=== PATIENT | male | born 1990 | race Caucasian/White ===

== ENCOUNTER 2016-11-06 21:04 | Emergency (ER) | payer BC, OTHER ==
[~2016-11-06] VITALS: Ht 193 cm; Wt 79.4 kg
[2016-11-06] MEDS ORDERED: LIDOCAINE 1% INJ 20 ML (XYLOCAINE) VIAL ONE (21:12)
[2016-11-06] MEDS ORDERED: LIDOCAINE 2% 20 ML (XYLOCAINE) VIAL INJ ONE (21:15)
[2016-11-06] MEDS ORDERED: ETOMIDATE IV SOLN 20 MG/10 ML VIAL IV ONE (21:15)
[2016-11-06] MEDS ORDERED: fentaNYL INJECTION 100 MCG/2 ML AMP ONE (21:17)
--- NOTE | 2016-11-06 21:34 | ED Lower Extremity ---
General Chief Complaint: Lower Extremity Stated Complaint: R ANKLE PAIN Nursing Triage Note: patient was playing basketball and went to block a shot and landed on his R ankle. Nursing Sepsis Screen: No Definite Risk Source: patient Exam Limitations: no limitations History of Present Illness Time seen by provider: 21:31 Initial Comments To ER per [facility] from the [facility] with reports of an ankle dislocation. Patient jumps to block a shot and landed wrong. Onset: just prior to arrival Severity: moderate Pain/Injury Location: right ankle Method of Injury: sports injury Modifying Factors: Worse With Movement Allergies and Home Medications Allergies Coded Allergies: No Known Drug Allergies (Unverified , 11/06/16) Home Medications Hydrocodone/Acetaminophen 1 Each Tablet, 1 EACH PO Q4H PRN for PAIN, #30 Prescribed by: GO GIRALDO on 11/06/16 2688 Constitutional: see HPI EENTM: see HPI Respiratory: no symptoms reported Cardiovascular: no symptoms reported Genitourinary: no symptoms reported Musculoskeletal: see HPI Skin: no symptoms reported Past Cdacbna-Wcfvef-Vytqrh Hx Patient Social History Alcohol Use: Regular Use Recreational Drug Use: No Smoking Status: Never a Smoker Recent Foreign Travel: No Contact w/Someone Who Travel: No Recent Infectious Disease Expo: No Recent Hopitalizations: No Surgeries HX Surgeries: No Respiratory Hx Respiratory Disorders: No Cardiovascular Hx Cardiac Disorders: No Neurological Hx Neurological Disorders: No Reproductive System Hx Reproductive Disorders: No Sexually Transmitted Disease: No Genitourinary Hx Genitourinary Disorders: No Gastrointestinal Hx Gastrointestinal Disorders: No Musculoskeletal Hx Musculoskeletal Disorders: No Endocrine Hx Endocrine Disorders: No HEENT HX ENT Disorders: No Cancer Hx Cancer: No Psychosocial Hx Psychiatric Problems: No Integumentary HX Skin/Integumentary Disorder: No Family Medical History Significant Family History: No Pertinent Family Hx Family Medial History: Hypertension 19 FATHER Physical Exam Vital Signs Vital Sign - Last 12Hours 11/06/16 21:16 Temp 98.4 Pulse 94 Resp 12 B/P (MAP) 164/100 Pulse Ox 100 O2 Delivery Room Air Capillary Refill : Less Than 3 Seconds General Appearance: WD/WN, no apparent distress HEENT: PERRL/EOMI, normal ENT inspection Neck: non-tender, full range of motion Respiratory: no respiratory distress, no accessory muscle use Hips: bilateral hip non-tender, bilateral hip normal inspection, bilateral hip normal range of motion Legs: bilateral leg non-tender, bilateral leg normal inspection, bilateral leg normal range of motion Knees: bilateral knee non-tender, bilateral knee normal inspection, bilateral knee normal range of motion Ankles: left ankle pain, left ankle soft tissue tenderness, left ankle other ( all normal. Initially the left foot was completely angled at nearly 90 medially. We were unable to palpate a posterior tibial pulse however he did have good capillary refill of his toes and SPO2 monitoring showed 99 percent when attached to the toe with good waveform. The ankle joint was anesthetized with 20 mL of 1 percent lidocaine without epinephrine. Simple traction was then applied and the ankle was easily reduced.) Neurologic/Psychiatric: alert, normal mood/affect, oriented x 3 Skin: normal color, warm/dry Splinting and Joint Reduction : Pre-Proc Neuro Vasc Exam: abnormal Post-Proc Neuro Vasc Exam: normal Reduction Attempts: 1 Pre-Procedure NV Exam: Yes post joint reduction film: joint reduced Splint Application: Short Leg Progress/Results/Core Measures Results/Orders My Orders Orders - GO GIRALDO APRN Ankle, Right, 3 Views (11/06/16 21:10) Etomidate Injection (Amidate Injection) (11/06/16 21:15) Lidocaine 2% Injection 20 Ml (Xylocaine (11/06/16 21:15) Lidocaine 1% Injection (Xylocaine 1% Inj (11/06/16 21:12) Fentanyl Injection (Sublimaze Injection (11/06/16 21:17) Ankle, Right, 3 Views (11/06/16 21:31) Ct Extremity Lower Right Wo (11/06/16 22:14) Oxycodone/Apap 5/325mg Tablet (Percocet (11/06/16 22:15) Medications Given in ED Current Medications Medications Dose Ordered Sig/Colt Route Start Time Stop Time Status Last Admin Dose Admin Lidocaine HCl 20 ml ONCE ONCE INJ 11/06/16 21:15 11/06/16 21:16 DC 11/06/16 21:16 20 ML Vital Signs/I&O Vital Sign - Last 12Hours 11/06/16 21:16 Temp 98.4 Pulse 94 Resp 12 B/P (MAP) 164/100 Pulse Ox 100 O2 Delivery Room Air Blood Pressure Mean: 121 Departure Communication Progress Notes 2214-patient's right ankle was reduced with surprising ease. Dr. Mcbride from program specialist of [address] [place] [address] has been here and helped with the application of a bulky Magallon dressing. He spoke with Dr. Muro who will see the patient tomorrow in clinic between 8 a.m. and noon. Impression Impression: Primary Impression: Ankle dislocation Disposition: 01 HOME, SELF-CARE Condition: Improved Departure-Patient Inst. Decision time for Depature: 21:52 Referrals: JEANINE MURO DPM, ADAM S DO (PCP/Family) Primary Care Physician Patient Instructions: Ankle Dislocation Add. Discharge Instructions: You're to see Dr. Muro tomorrow morning in follow-up. You should go to his office which has been listed below between 8 a.m. and noon and he will squeeze you in. Keep the foot elevated tonight. Pain medication as directed and return to ER for any concerns All discharge instructions reviewed with patient and/or family. Voiced understanding. Scripts Hydrocodone/Acetaminophen (Dilliner 5-325 Tablet) 1 Each Tablet 1 EACH PO Q4H Y for PAIN, #30 TAB Prov: GO GIRALDO APRN 11/06/16 Work/School Note: Work Release Form Date Seen in the Emergency Department: Nov 06, 2016 Return to Work: Nov 09, 2016 Restrictions: No Restrictions Copy Copies To 1: JEANINE MURO DPM, PETER J APRN Nov 06, 2016 21:34
--- NOTE | 2016-11-06 21:49 | Diagnostic Imaging Report ---
INDICATION: Right ankle dislocation followup. EXAMINATION: Three views of the right ankle were obtained. FINDINGS: Interval reduction of the right ankle. There is no appreciable fracture. There is soft tissue swelling. IMPRESSION: Successful interval reduction of the right ankle. Dictated by: Dictated on workstation # [id number]
--- NOTE | 2016-11-06 21:49 | Diagnostic Imaging Report ---
INDICATION: Right ankle injury. EXAMINATION: Three views of the right ankle were obtained. FINDINGS: Dislocation of the right ankle, posteriorly and medially. There is no obvious fracture on these views. IMPRESSION: Dislocated right ankle. Critical finding Report was called to Dakota Bell APRN in the [facility] ER at 9:47 p.m., by eugenio. Dictated by: Dictated on workstation # [id number]
[2016-11-06] MEDS ORDERED: oxyCODONE/APAP 5/325MG (PERCOCET 5) TABLET PO ONE (22:15)
[2016-11-06] MEDS ORDERED: HYDR-757 PO (22:18)
[2016-11-06 22:52] VITALS: BP 140/96
[2016-11-07] MEDS ORDERED: fentaNYL INJECTION 100 MCG/2 ML AMP IVP STA (02:13)
--- NOTE | 2016-11-07 06:41 | Diagnostic Imaging Report ---
CLINICAL INDICATION: Post reduction right ankle. EXAM: Axial CT scan of the left ankle performed without IV contrast. Sagittal and coronal reformatted images were created. COMPARISON: X-ray of the right ankle dated 11/06/2016. FINDINGS: The tibiotalar joint is now in anatomic alignment postreduction. There are small fragments of calcification seen posterior to the distal tibia seen medially. There are also punctate calcifications seen adjacent to the anterior inferior medial aspect of the distal tibia. There are also small punctate calcifications seen within the tibiotalar joint. There is a small punctate calcification seen medial and distal to the malleolar region. There is a small minimally distracted fracture fragment involving the anterior lateral aspect of the talar dome region which is best seen on the sagittal sequence series 10 image 39. Exact donor site of these punctate calcifications is not known. These areas are concerning for small avulsion and/or chip fractures. There is soft tissue swelling seen about the ankle. There is a 2.0-cm lytic area within the calcaneus likely representing benign intraosseous lipoma. IMPRESSION: 1: There is now anatomic alignment post reduction of the tibiotalar joint. 2: There are small punctate calcifications seen in within the tibiotalar joint and adjacent to the tibiotalar joint and adjacent to the lateral anterior aspect of the talar dome. Although no donor site is seen, these findings are concerning for avulsion and/or chip fractures. 3: There is soft tissue swelling about the left ankle. 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 I agree with [employer] report. Dictated by: Dictated on workstation # [id number]
--- NOTE | 2016-11-07 10:39 | EMERGENCY ROOM REPORT ---
DATE OF CONSULTATION: 11/06/2016 EMERGENCY ROOM CONSULTATION: At the request of the emergency room physician Dislocation of right ankle. 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 It was obviously very deformed. He was brought to the emergency department. I spoke with the emergency department physician and suggested he use lidocaine injection, about 20 mL of 1% in the joint and that would make reducing it easier by the time I got there. I arrived within 20 minutes or so and by then the patient had already been relocated with simple axial traction. X-rays: X-ray showed an obvious dislocation, complete of the right ankle. The postreduction x-rays showed anatomic alignment, no fractures of the fibula, no fractures of the medial malleolus or posterior malleolus either. There is a little kristan of calcium off the lateral side of the talus which may or may not be traumatic. EXAMINATION: Well located ankle, minimal swelling. Good dorsalis pedis pulse, 99% pulse oximetry. Skin intact. IMPRESSION: Status post dislocation and relocation of the right ankle with soft tissue injuries only with no fractures obvious, other than possibly a few avulsion ones. PLAN: I helped put a bulky Magallon type dressing on. It was padded with about 4 to 5 cm of Sof-Rol and Kerlix, followed by an "X" splint of [facility]. The patient was instructed to go home and keep it elevated. I spoke with foot and ankle specialist from [address] and the patient will be seen tomorrow morning in clinic here in [place]. We will get a CT of his ankle tonight at the request of the foot and ankle specialist. Job ID: [id number] Dictated Date: 11/06/2016 22:20:39 Press Supervisor Date: 11/07/2016 10:24:28/baldomero ROWLEY
--- OUTSIDE RECORDS SUMMARY | 2016-12-08 18:23 | XMS REPORT | Continuity of Care Document ---
Author Author [facility] Organization [facility] Address Unknown Phone Unavailable Allergies Active Description Code Type Severity Reaction Onset Reported/Identified Relationship to Patient Clinical Status Yes No Known Drug Allergies [id number] Drug Allergy Unknown N/ A 11/06/2016 Medications Problems Date Dx Coded Attending Type Code Diagnosis Diagnosed By 05/24/2015 CLAUDETTE VEE Ot E86.9 05/24/2015 CLAUDETTE VEE Ot K59.00 05/24/2015 CLAUDETTE VEE Ot R10.9 11/06/2016 GO GIRALDO APRN Ot S93.04XA DISLOCATION OF RIGHT ANKLE JOINT, INITIA 11/06/2016 GO GIRALDO APRN Ot S99.911A UNSPECIFIED INJURY OF RIGHT ANKLE, INITI 11/06/2016 GO GIRALDO APRN Ot X50.9XXA OTHER AND UNSPECIFIED OVREXRTN OR STRNOU 11/06/2016 GO GIRALDO APRN Ot Y92.[address] 11/06/2016 GO GIRALDO APRN Ot Y93.67 ACTIVITY, BASKETBALL 11/06/2016 GO GIRALDO APRN Ot Y99.8 OTHER EXTERNAL CAUSE STATUS 11/07/2016 GO GIRALDO APRN Ot S93.04XA DISLOCATION OF RIGHT ANKLE JOINT, INITIA 11/07/2016 GO GIRALDO APRN Ot S99.911A UNSPECIFIED INJURY OF RIGHT ANKLE, INITI 11/07/2016 GO GIRALDO APRN Ot X50.9XXA OTHER AND UNSPECIFIED OVREXRTN OR STRNOU 11/07/2016 GO GIRALDO APRN Ot Y92.[address] 11/07/2016 GO GIRALDO APRN Ot Y93.67 ACTIVITY, BASKETBALL 11/07/2016 GO GIRALDO APRN Ot Y99.8 OTHER EXTERNAL CAUSE STATUS 11/08/2016 GO GIRALDO APRN Ot S93.04XA DISLOCATION OF RIGHT ANKLE JOINT, INITIA 11/08/2016 GO GIRALDO 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 Ot S99.911A UNSPECIFIED INJURY OF RIGHT ANKLE, INITI 11/08/2016 GO GIRALDO 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 Ot X50.9XXA OTHER AND UNSPECIFIED OVREXRTN OR STRNOU 11/08/2016 GO GIRALDO APRN Ot Y92.[address] 11/08/2016 GO GIRALDO APRN Ot Y93.67 ACTIVITY, BASKETBALL 11/08/2016 GO GIRALDO APRN Ot Y99.8 OTHER EXTERNAL CAUSE STATUS 11/11/2016 MALA SNELL, ELIZABETH Young Ot S93.04XA DISLOCATION OF RIGHT ANKLE JOINT, INITIA 11/11/2016 ELIZABETH MEDEIROS MD Ot Y93.67 ACTIVITY, BASKETBALL 11/14/2016 ELIZABETH MEDEIROS MD Ot S93.04XA DISLOCATION OF RIGHT ANKLE JOINT, INITIA 11/14/2016 ELIZABETH MEDEIROS MD Ot Y93.67 ACTIVITY, BASKETBALL 11/22/2016 ELIZABETH MEDEIROS MD Ot S93.04XA DISLOCATION OF RIGHT ANKLE JOINT, INITIA 11/22/2016 ELIZABETH MEDEIROS MD Ot Y93.67 ACTIVITY, BASKETBALL Procedures Results Encounters ACCT No. Visit Date/Time Discharge Status Pt. Type Provider Facility Loc./Unit Complaint [id number] 11/06/2016 21:05:00 2016 22:52:00 DIS Emergency GO GIRALDO APRN [facility] ER R ANKLE PAIN [id number] 05/23/2015 22:18:00 2014 23:59:59 CLS Emergency CLAUDETTE VEE [facility] ER [id number] 11/08/2016 09:25:00 ACT Outpatient ELIZABETH MEDEIROS MD [facility] RAD DISLOCATION OF RIGHT ANKLE
== END 2016-11-06 22:52 | disposition home or self-care (01) ==
LOC: EDUNIT# 21:04 → ER 21:05
DX: S93.04XA Dislocation of right ankle joint, initial encounter (principal); X50.9XXA Other and unspecified overexertion or strenuous movements or postures, initial encounter; Y93.67 Activity, basketball; Y92.310 Basketball court as the place of occurrence of the external cause; Y99.8 Other external cause status
CPT/HCPCS: 27840; 29505; 73610; 73700; 96360

== ENCOUNTER → 2016-11-08 | Outpatient (CLI) | payer BC ==
[~2016-11-08] MED LIST: HYDR-757 PO
--- NOTE | 2016-11-08 14:26 | Diagnostic Imaging Report ---
PROCEDURE: MRI right joint lower extremity without contrast. TECHNIQUE: Multiplanar, multisequence non contrast-enhanced MRI of the right lower extremity was accomplished. INDICATION: Dislocation of right ankle. FINDINGS: The peroneal tendon is intact. The medial and posterior tendinous structures intact. The tibiofibular syndesmosis intact. No widening of the mortise. Plafond and talar dome intact. No osteochondral injury or fracture. No joint effusion or loose body. There is very slight marrow edema which may be contusive involving the medial malleolus but no fracture. Anterior and posterior subtalar joints unremarkable. Tarsal tunnel and sinus tarsi unremarkable. Plantar fascia unremarkable. IMPRESSION: Circumferential soft tissue swelling and subcutaneous edema. There is ill-definition and presumed rupture of the anterior talofibular ligament but no widening of the mortise. There is likely mild marrow edema on a contusive basis to the unfractured medial malleolus. Remaining osseous structures unremarkable. The remaining tendinous and ligamentous structures intact. No loose body. No joint effusion. Dictated by: Dictated on workstation # [id number]
== END ==
LOC: RAD 09:25
PROVIDERS: ATTEND Orthopaedic Surgery
DX: S93.04XA Dislocation of right ankle joint, initial encounter (principal); Y93.67 Activity, basketball
CPT/HCPCS: 73721

== ENCOUNTER → 2017-03-03 | Outpatient (CLI) | payer BC ==
[~2017-03-03] VITALS: Ht 193 cm; Wt 79.4 kg
[~2017-03-03] MED LIST changes: +GADOBUTROL 7.5 MMOL/7.5 ML (GADAVIST) VIAL IV ONE; +IOHEXOL 300 MG/ML 30 ML (OMNIPAQUE 300) VIAL IV ONE
[2017-03-03 13:37] VITALS: BP 120/67
[2017-03-03 14:03] VITALS: BP 118/70
--- NOTE | 2017-03-03 14:19 | Diagnostic Imaging Report ---
EXAMINATION: Fluoroscopic guided joint injection/arthrogram- right hip. INDICATION: Right hip pain, request for MR arthrogram of the shoulder is submitted. Fluoroscopy time: 15 seconds CONSENT: Informed consent was obtained from the patient. The risks, benefits, potential complications and alternatives were reviewed and all questions answered to the patient's satisfaction. PROCEDURE: After sterile preparation and draping, 1% lidocaine was utilized for local anesthesia. A 22 spinal needle is introduced into the right hip joint under fluoroscopic guidance. After confirmation of proper positioning with intra-articular injection of, 8 ml of 1:150 concentration of Gadavist in normal saline is injected the into the joint. The patient tolerated the procedure well with no immediate complications. FINDINGS: Arthrogram demonstrates Normal distribution of contrast in the joint. IMPRESSION: Successful fluoroscopic guided injection of diluted gadolinium into the right hip . MR arthrogram to follow. Dictated by: Dictated on workstation # [id number]
--- NOTE | 2017-03-03 16:22 | Diagnostic Imaging Report ---
PROCEDURE: MRI right joint lower extremity with contrast. TECHNIQUE: Multiplanar, multisequence contrast-enhanced MRI of the right hip was accomplished. INDICATION: Right hip pain. Evaluate for labral tear. COMPARISON: None available. FINDINGS: The anterior superior labrum has somewhat truncated morphology with suggestion of a nondisplaced intrasubstance tear. No displaced tear of the glenoid labrum. The right hip is well distended with intra-articular contrast material. No proliferative synovitis or loose bodies. Normal femoral head neck offset. No acetabular retroversion. Ligamentum teres is intact. Articular cartilage throughout the hip is well maintained. The right distal iliopsoas tendon is intact. The gluteus medius and minimus insertional fibers on the greater trochanter are normal. No peritrochanteric fluid collection to indicate bursitis. The right hamstring complex origin is normal. No osteonecrosis of the femoral heads. No evidence of sacral fracture. No marrow replacing process. IMPRESSION: 1. Possible nondisplaced intrasubstance tear of the anterosuperior right acetabular labrum. 2. No morphology of the hip that would predispose to femoral acetabular impingement. Dictated by: Dictated on workstation # [id number]
== END ==
LOC: RAD 13:11
PROVIDERS: ATTEND Orthopaedic Surgery
DX: M25.551 Pain in right hip (principal)
CPT/HCPCS: 27093; 73525; 73722

== ENCOUNTER 2018-06-07 22:06 | Emergency (ER) | payer BC ==
[~2018-06-07] VITALS: Ht 193 cm; Wt 83.9 kg
[~2018-06-07 22:06] MED LIST changes: -GADOBUTROL 7.5 MMOL/7.5 ML (GADAVIST) VIAL IV ONE; +HYDR-4226 PO; -HYDR-757 PO; -IOHEXOL 300 MG/ML 30 ML (OMNIPAQUE 300) VIAL IV ONE
[2018-06-07] MEDS ORDERED: HYDR-4226 PO ×2 (22:19→22:42)
--- NOTE | 2018-06-07 22:20 | ED Lower Extremity ---
General Stated Complaint: HURT KNEE PLAYING BASKETBALL Source: patient Exam Limitations: no limitations History of Present Illness Date Seen by Provider: Jun 07, 2018 Time Seen by Provider: 22:15 Initial Comments To ER with left knee pain. He was playing basketball, went for a layup felt a pop in his knee and has been unable to extend the left knee since then. No other injuries. Interestingly, I saw him last year for a left ankle dislocation. He is very tall and thin and may warrant a workup for connective tissue disorder given his injuries so far. Onset: just prior to arrival Severity: moderate Pain/Injury Location: left knee, left ankle Method of Injury: sports injury Modifying Factors: Worse With Movement Allergies and Home Medications Allergies Coded Allergies: No Known Drug Allergies (Unverified , 11/06/16) Home Medications Hydrocodone/Acetaminophen 1 Each Tablet, 1 EACH PO Q6H PRN for PAIN-MODERATE Prescribed by: GO GIRALDO on 06/07/18 7539 Patient Home Medication List Home Medication List Reviewed: Yes Review of Systems Constitutional: see HPI EENTM: see HPI Respiratory: no symptoms reported Cardiovascular: no symptoms reported Genitourinary: no symptoms reported Musculoskeletal: see HPI Skin: no symptoms reported Past Tkefhjz-Pursdk-Xklusz Hx Patient Social History Alcohol Beverage of Choice: Beer Recent Foreign Travel: No Contact w/Someone Who Travel: No Recent Hopitalizations: No Past Medical History Reproductive Disorders: No Sexually Transmitted Disease: No Family Medical History Hypertension 19 FATHER No Pertinent Family Hx Physical Exam Vital Signs Vital Signs - First Documented 06/07/18 22:10 Temp 97.7 Pulse 111 Resp 20 B/P (MAP) 155/97 (116) Pulse Ox 98 O2 Delivery Room Air Capillary Refill : Height, Weight, BMI Height: 6'4.00" Weight: 175lbs. 0.0oz. 79.714193ar; 21.3 BMI Method:Stated General Appearance: WD/WN, no apparent distress HEENT: PERRL/EOMI, normal ENT inspection Neck: non-tender, full range of motion Respiratory: no respiratory distress, no accessory muscle use Hips: bilateral hip non-tender, bilateral hip normal inspection, bilateral hip normal range of motion Legs: bilateral leg non-tender, bilateral leg normal inspection, bilateral leg normal range of motion Knees: left knee other (the patella is unusually proximal, he is unable to lift his left foot up off of the bed. There is no lateral or medial dislocation of the patella, this based on appearance is a patellar tendon rupture.) Ankles: bilateral ankle non-tender, bilateral ankle normal inspection, bilateral ankle normal range of motion Feet: bilateral foot non-tender, bilateral foot normal inspection, bilateral foot normal range of motion Neurologic/Psychiatric: alert, normal mood/affect, oriented x 3 Skin: normal color, warm/dry Progress/Results/Core Measures Results/Orders My Orders Orders - GO GIRALDO APRN Knee, Left, 3 Views (06/07/18 22:15) Knee Immobilizer (06/07/18 22:15) Vital Signs/I&O 06/07/18 22:10 Temp 97.7 Pulse 111 Resp 20 B/P (MAP) 155/97 (116) Pulse Ox 98 O2 Delivery Room Air Departure Communication (Admissions) Family Conversation He has a strong pedal pulse and inability to move his toes and feet and normal sensation distal to this injury. 2239- discussed the need for follow-up to evaluate for connective tissue disorder given his injuries. He states that he has paperwork from Dr. Mccarthy's office as he plans to see her to discuss his generalized anxiety but has not actually made an appointment yet. He intends to do that this week. He has seen both Dr. Landa and Dr. Cisneros for orthopedic related issues. He would like me to send his chart to both of them and he'll call for an appointment this week , he is not sure who he would see this week. Impression Primary Impression: Patellar tendon rupture Qualified Codes: S86.812A - Strain of other muscle(s) and tendon(s) at lower leg level, left leg, initial encounter Disposition: 01 HOME, SELF-CARE Condition: Stable Departure-Patient Inst. Decision time for Depature: 22:18 Referrals: LUIS CISNEROS MD, JACQUELINE S DO PAONI, ADAM S DO (PCP/Family) Primary Care Physician ELIZABETH LANDA MD Patient Instructions: Patella Fracture, Patellar Tendinopathy Add. Discharge Instructions: 1. Wear the knee immobilizer at all times except when showering. Call orthopedist of your choosing tomorrow to make an appointment as soon as possible. Discuss with your primary care provider as well the possibility of a connective tissue disorder given the injuries that she sustained over the past 1 -2 years. Scripts Hydrocodone/Acetaminophen (Estero 5-325 Tablet) 1 Each Tablet 1 EACH PO Q6H PRN for PAIN-MODERATE MDD 10, #14 TAB Prov: GO GIRALDO APRN 06/07/18 Work/School Note: Work Release Form Date Seen in the Emergency Department: Jun 07, 2018 Return to Work: Jun 09, 2018 Copy Copies To 1: LUIS CISNEROS MD; MOY MCCARTHY DO; ELIZABETH LANDA MD, PETER J APRN Jun 07, 2018 22:20
[2018-06-07] MEDS ORDERED: RX-HYDROCODONE/APAP 5/325 MG #4 TAB PK PO PRN (22:45)
[2018-06-07 22:53] VITALS: BP 155/97
--- NOTE | 2018-06-08 06:39 | Diagnostic Imaging Report ---
INDICATION: Left knee pain. TECHNIQUE: 3 views of the left knee. COMPARISON: None FINDINGS: No acute fracture is seen in the left knee. There appears to be mild patella zeny, although the lateral view is suboptimal in position. Joint spaces are otherwise preserved. IMPRESSION: No acute fracture is seen in the left knee. There is mild patella zeny. Dictated by: Dictated on workstation # [id number]
== END 2018-06-07 22:53 | disposition home or self-care (01) ==
LOC: EDUNIT# 22:06 → ER 22:07
DX: S76.112A Strain of left quadriceps muscle, fascia and tendon, initial encounter (principal); X50.0XXA Overexertion from strenuous movement or load, initial encounter; Y93.67 Activity, basketball
CPT/HCPCS: 73562